=== PATIENT | female | born 1955 | race Caucasian/White ===

== ENCOUNTER → 2019-09-20 | Outpatient (CLI) | payer BC ==
--- NOTE | 2019-09-21 09:52 | BD ---
EXAMINATION TYPE: Axial Bone Density DATE OF EXAM: 09/20/2019 COMPARISON: NONE CLINICAL HISTORY: Postmenopausal Height: 5 fFT 3 IN Weight: 203 FRAX RISK QUESTIONS: Alcohol (3 or more units per day): NO Family History (Parent hip fracture): NO Glucocorticoids (More than 3mos): NO (Ex: prednisone, prednisolone, methylprednisolone, dexamethasone, and hydrocortisone). History of Fracture in Adulthood: NO Secondary Osteoporosis: 1. Type 1 Diabetes: NO 2. Hyperthyroidism: NO 3. Menopause before 45: PART AGE 44 4. Malnutrition: NO 5. Chronic liver disease: NO Rheumatoid Arthritis: NO Current Tobacco Use: NO RISK FACTORS HISTORY OF: Active: YES Postmenopausal woman: PART AGE 44 MEDICATIONS: Thyroid Medications: YES Which medication: LEVOTHYROXINE How Long: SINCE 2008 Osteoporosis Medications: YES Which medication: FOSAMAX How Lon YEARS Additional Medications: ,FOSAMAX,LEVOTHYROXINE, ANXIETY MEDS, LETRAZOLE,CALCIUM, VIT D, VIT E ,LISINO PRIL, HYDROCODONE, CYCLOBENZAPRINE, PRAVASTIN Additional History: BREAST CANCER 2009 STILL TAKING CHEMO PILL EXAM MEASUREMENTS: Bone mineral densitometry was performed using the Med[employer] System. Bone mineral density as measured about the Lumbar spine is: ----- L1-L4(G/cm2): 1.116 T Score Values are as follows: ----- L2: -0.7 ----- L3: -0.4 ----- L4: -0.8 ----- L1-L4: -0.5 BASELINE Bone mineral density about the R hip (g/cm2): 0.836 Bone mineral density about the L hip (g/cm2): 0.882 T Score values are as follows: -----R Neck: -1.5 -----L Neck: -1.1 -----R Total: -1.1 -----L Total: -0.4 BASELINE IMPRESSION: Osteopenia (T Score between -2.5 and -1). There is slightly increased risk of fracture and the patient may be considered for treatment. Re-Screen 2-5 years. NOTE: T-SCORE=SD OF THE YOUNG ADULT MEAN.
== END | disposition home or self-care (01) ==
LOC: RADBDWWP 16:10
PROVIDERS: ATTEND Internal Medicine Hematology & Oncology
DX: C50.311 Malignant neoplasm of lower-inner quadrant of right female breast (principal); M85.80 Other specified disorders of bone density and structure, unspecified site; Z79.890 Hormone replacement therapy; N95.1 Menopausal and female climacteric states; Z91.040 Latex allergy status
CPT/HCPCS: 77080

== ENCOUNTER → 2020-04-03 | Outpatient (CLI) | payer BC ==
--- NOTE | 2020-04-04 09:20 | NM ---
EXAMINATION TYPE: NM thyroid image w uptake DATE OF EXAM: 04/04/2020 COMPARISON: NONE HISTORY: Goiter and hypothyroidism. TECHNIQUE: Thyroid iodine uptake is calculated and images performed after the oral administration of 321 uCi 1-123 Capsule. FINDINGS: There is normal distribution of activity throughout the gland. The 4 hour iodine uptake is calculated at 12% (normal range 8-14%). The 24-hour iodine uptake is calculated at 28% (normal range 15-35%). IMPRESSION: Normal thyroid scan and uptake.
== END | disposition home or self-care (01) ==
LOC: RADNMMAIN 08:18
PROVIDERS: ATTEND Nurse Practitioner Family
DX: E04.9 Nontoxic goiter, unspecified (principal); E03.9 Hypothyroidism, unspecified
CPT/HCPCS: 78014; A9516

== ENCOUNTER → 2020-09-26 | Outpatient (CLI) | payer MEDICAID ==
[2020-09-26 14:37] VITALS: BP 146/89; PULSE 92; RESP 18; TEMP 98.7
--- NOTE | 2020-09-26 15:42 | P.GSHP ---
History of Present Illness H&P Date: 09/26/20 Chief Complaint: bilateral breast cancer Maria Luz is a 64 year old white female seen in consultation for Raquel Marina regarding a history of breast cancer. In November 2009 she was able to palpate a lump in her breast right breast. She had a mammogram that showed new clustered microcalcifications in the UOQ and a small nodule. Ultrasound showed a 1 x 0.8 cm solid nodule at the 3 o'clock position of the right breast corresponding with the palpable lump. No other solid or cystic masses were noted. Attempt at core biopsy was unsuccessful and an open biopsy was performed in the operating room which was positive for invasive ductal carcinoma. This was stage IA. This was approximately a 1 cm tumor was Kianna score 2-3. There was no angiolymphatic invasion, ER positive, SC positive, HER-2 equivocal but positive on fish. 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 The DCIS was ER SC positive. She then underent a bilateral mastectomy and a sentinel node biopsy on February 26, 2010. Three lymph nodes were taken and one was positive for isolated tumor cells. Within the left breast there was no residual or invasive tumor. Right mastectomy tissue revealed no residual in situ or invasive malignancy. She had bilateral reconstruction. The reconstruction was implant reconstruction about one year later in 2010, in [place]. She did not have any chemotherapy or radiation therapy. She was on an antiestrogen medication for 10 years, she was initially on aromidex, and then was changed to letrazole. Between the time of her bilateral mastectomies and starting the hormonal therapy she lost her insurance. At the point where she was being followed again by medical oncology they did not feel that radiation of the axilla secondary to an in situ tumor in the lymph node or any treatment for a HER-2 positive aspect of the tumor was merited. She noted a lump on the left breast/ reconstructed lateral area about one month ago and the left implant is migrating under her axilla. She noted this a few weeks after stopping the letrazole. She states both implants are uncomfortable. [place] [id number]. This revealed a hypoechoic area within the 2 o'clock position of the left breast 9 cm from the nipple. It measured 4 mm in greatest dimension. Follow-up exam in 4-6 months was recommended. This was at the region of the palpable lump. At this time the patient is complaining of constant aching discomfort and bilateral chest wall. The aching radiating discomfort results and emotional anxiety and concerns the cancer may have recurred. She states it is worse with any movement. The left implant rotates under the axilla and she has to push it back. Additionally with any flexing of the pectoralis muscle be implants move and is are uncomfortable. Family History: patient: bilateral breast cancer father: lung cancer maternal great grandmother: breast ancer maternal aunt: breast cancer maternal cousin: breast cancer maternal uncle: leukemia brother: skin cancer ? melanoma Hormonal History: menarche: 14 , breast fed: no, age at first : 22 menopause: hysterectomy at 45, done for fibroid tumors, left one ovary BCP: none hormones: limited time after hysterectomy, 2 years Surgical History: hysterectomy and one ovary bilateral mastectomy, right axillary nodes removed bilateral breast reconstruction January 2011 bladder sling gallbladder lipoma lipoma back Medical History: Abril's disease Arthritis HTN spinal stenosis back disc disease vertigo Spondylolisthesis nicotine: none, second hand smoke her (daughter and her ) alcohol:none drugs: none - Constitutional Constitutional: Reports sweats - EENT Eyes: denies blurred vision, denies pain Ears: deny: decreased hearing, tinnitus Ears, nose, mouth and throat: Denies headache, Denies sore throat - Breasts Breasts: bilateral: as per HPI - Cardiovascular Cardiovascular: Denies chest pain, Denies shortness of breath - Respiratory Respiratory: Reports as per HPI - Gastrointestinal Gastrointestinal: Reports constipation, Denies abdominal pain, Denies diarrhea, Denies nausea, Denies vomiting - Genitourinary (Female) Genitourinary: Denies dysuria, Denies hematuria - Menstruation Menstruation: Reports post hysterectomy - Musculoskeletal Comment: arthritis Musculoskeletal: Reports as per HPI - Integumentary Integumentary: Denies pruritus, Denies rash - Neurological Neurological: Denies numbness, Denies weakness - Psychiatric Psychiatric: Reports anxiety, Reports depression - Endocrine Comment: diabetic Endocrine: Denies fatigue, Denies weight change - Hematologic/Lymphatic Comment: none - Allergic/Immunologic Allergic/Immunologic: Reports as per HPI, Reports seasonal allergies Past Medical History History of Any Multi-Drug Resistant Organisms: None Reported Smoking Status: Never smoker Medications and Allergies Home Medications Medication Instructions Recorded Confirmed Type Calcium Carb/Vitamin D3/Vit K1 1 each PO DAILY 09/26/20 09/26/20 History [Citracal Soft Chew] Cholecalciferol (Vitamin D3) 125 mcg PO DAILY 09/26/20 09/26/20 History [Vitamin D3 (5000 Iu)] Cyclobenzaprine [Flexeril] 5 mg PO HS 09/26/20 09/26/20 History Escitalopram [Lexapro] 20 mg PO DAILY 09/26/20 09/26/20 History HYDROcodone/APAP 5-325MG [[place] 1 tab PO Q4HR PRN 09/26/20 09/26/20 History 5-325] Ibuprofen 800 mg PO Q8H PRN 09/26/20 09/26/20 History Letrozole 2.5 mg PO DAILY 09/26/20 09/26/20 History Levothyroxine Sodium 25 mcg PO DAILY 09/26/20 09/26/20 History Meclizine [Antivert] 25 mg PO DAILY PRN 09/26/20 09/26/20 History [place]-3 Fatty Acids/Fish Oil [Fish 1 each PO DAILY 09/26/20 09/26/20 History Oil 1,000 mg Softgel] Pravastatin Sodium [Pravachol] 20 mg PO DAILY 09/26/20 09/26/20 History Vitamin E 400 unit PO DAILY 09/26/20 09/26/20 History metFORMIN HCL [Glucophage] 500 mg PO BID 09/26/20 09/26/20 History Allergies Allergy/AdvReac Type Severity Reaction Status Date / Time adhesive tape AdvReac Itching Unverified 09/26/20 14:27 anastrozole AdvReac Rash/Hives Unverified 09/26/20 14:27 clindamycin AdvReac Rash/Hives Unverified 09/26/20 14:27 latex AdvReac Itching Unverified 09/26/20 14:27 methylprednisolone AdvReac Nausea Unverified 09/26/20 14:27 Penicillins AdvReac Nausea Unverified 09/26/20 14:27 Surgical - Exam Vital Signs Temp Pulse Resp BP Pulse Ox 98.7 F 92 18 146/89 98 09/26/20 14:33 09/26/20 14:33 09/26/20 14:33 09/26/20 14:33 09/26/20 14:33 BMI 35.2 - General well developed, no distress - Eyes normal ocular movement - ENT normal pinna, normal nares - Neck no masses, trachea midline - Respiratory normal expansion, normal respiratory effort, clear to auscultation - Cardiovascular Rhythm: regular Heart Sounds: normal: S1, S2 - Abdomen Abdomen: soft, non tender, no guarding, no rigid, no rebound - Integumentary normal turgor - Neurologic no disoriented, no combative - Musculoskeletal normal gait - Psychiatric oriented to time, oriented to person, oriented to place, speech is normal, memory intact breast exam: BRA: 42C inspection: bilateral scars and a symmetrical appearance related to breast reconstruction and implants which appeared to be dislodged Palpation: Right breast: Multiple positional exam no discrete dominant mass or nodules of concern implant is in place appears to be fibrosed in place and with patient flexes the pectoral muscle the implant moves with that Right axilla: No adenopathy of concern Left breast: Well-healed scars from prior surgery, implant in place appears to be fibrosed and dislodges with the patient flexes her packed muscle; some mild fullness of the lateral aspect of the incision on the left which may be fibrofatty tissue Left axilla: No adenopathy of concern Results ultrasound reviewed medical records reviewed Assessment and Plan Assessment: Impression: Abril's disease Arthritis HTN spinal stenosis back disc disease vertigo Spondylolisthesis Left breast DCIS/status post mastectomy, right breast stage IA invasive ductal carcinoma, status post mastectomy Bilateral breast reconstruction approximately 10 years ago with probable fibrosis of bilateral implants Nodularity left lateral mastectomy site on implant/not a good candidate for a ne edle biopsy of the site Plan: 1. Patient would like to have implants removed as they are chronically painful, they're becoming more painful with time, they appeared to be fibrosed and in abnormal location, they're causing emotional distress. The make it difficult to do chest wall examination she is concerned about recurrent cancer. She has been a concern the tumor may have recurred as she has some nodularity in the lateral aspect of the left breast and it is hard to evaluate her chest wall. 2. Bilateral implant removal without reconstruction. 3. Patient is given options to see a plastic surgeon and she has declined. 4. medical clearance Risks and benefits of implant removal and is incision revision I discussed with the patient. Of greatest concern is the fact that she has an incision across the breast as well as in the inferior aspect of the breast and so the concern is about the blood supply to the lower flap. She understands this and wishes to proceed with bilateral mastectomies. Risks include but are not limited to bleeding, infection, reaction to the anesthetic. She is not interested in reconstruction in the future and would like to have these removed secondary to the above reasons. CC: Raquel Guevara encounter 60 minutes, time spent in reviewing medical records, physical examination, and counselling.
== END | disposition home or self-care (01) ==
LOC: WWCWWP 13:54
PROVIDERS: ATTEND Surgery
DX: Z53.9 Procedure and treatment not carried out, unspecified reason (principal)

== ENCOUNTER 2020-10-30 16:30 | Emergency (ER) | payer MEDICAID, OTHER ==
[2020-10-30] MEDS ORDERED: DIPH,PERTUS(ACELL)TETVAC-LF 0.5 ML VIAL IM ONE (17:00)
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
[2020-10-30] MEDS ORDERED: ACETAMINOPHEN TAB 500 MG TAB PO STA (17:19)
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
--- NOTE | 2020-10-30 18:11 | XR ---
EXAMINATION TYPE: XR knee complete LT DATE OF EXAM: 10/30/2020 COMPARISON: NONE HISTORY: Knee pain TECHNIQUE: 3 views FINDINGS: There is some spurring on the superior patella. I see no fracture nor dislocation. Joint sp aces are fairly normal. IMPRESSION: No acute abnormality of the left knee.
[2020-10-30] MEDS ORDERED: KETOROLAC 15 MG/ML 1 ML VIAL IM STA (18:38)
[2020-10-30 18:43] VITALS: BP 138/89; PULSE 93; RESP 16; TEMP 97.6
--- NOTE | 2020-10-30 19:23 | XR ---
EXAMINATION TYPE: XR lumbosacral spine min 4V DATE OF EXAM: 10/30/2020 COMPARISON: NONE HISTORY: Pain TECHNIQUE: 5 views FINDINGS: There is a 1 cm anterior subluxation of L4 in relation L5. I see no compression fracture. T here is mild spurring of the endplates. Sacroiliac joints are intact. IMPRESSION: There is an L4-5 spondylolisthesis without evidence of spondylolysis. No fracture seen.
== END 2020-10-30 19:32 | disposition home or self-care (01) ==
LOC: EC 16:30
DX: S16.1XXA Strain of muscle, fascia and tendon at neck level, initial encounter (principal); S39.012A Strain of muscle, fascia and tendon of lower back, initial encounter; S80.02XA Contusion of left knee, initial encounter; R07.89 Other chest pain; V43.52XA Car driver injured in collision with other type car in traffic accident, initial encounter; Y93.I9 Activity, other involving external motion; Y92.410 Unspecified street and highway as the place of occurrence of the external cause; Z90.49 Acquired absence of other specified parts of digestive tract; Z90.710 Acquired absence of both cervix and uterus; Z85.3 Personal history of malignant neoplasm of breast
CPT/HCPCS: 72110; 73562; 71046; 72125; 70450; 90715; 99285; 96372; 90471; J1885

== ENCOUNTER → 2020-11-07 | Outpatient (CLI) | payer MEDICAID, OTHER ==
[2020-11-07 15:18] VITALS: BP 141/89; PULSE 96; RESP 18; TEMP 98.5
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
== END ==
LOC: WWCWWP 15:06
PROVIDERS: ATTEND Surgery
DX: E06.3 Autoimmune thyroiditis (principal); M19.90 Unspecified osteoarthritis, unspecified site; I10 Essential (primary) hypertension; M48.00 Spinal stenosis, site unspecified; M51.9 Unspecified thoracic, thoracolumbar and lumbosacral intervertebral disc disorder; R42 Dizziness and giddiness; M43.10 Spondylolisthesis, site unspecified; Z90.13 Acquired absence of bilateral breasts and nipples; Z79.899 Other long term (current) drug therapy; Z79.1 Long term (current) use of non-steroidal anti-inflammatories (NSAID)

== ENCOUNTER → 2020-11-13 | Outpatient (CLI) | payer MEDICAID ==
--- NOTE | 2020-11-13 12:34 | USB ---
Reason for exam: clinical finding. History: Patient has history of breast cancer at age 55. Family history of breast cancer in grandmother, breast cancer in maternal aunt, and breast cancer in cousin at age 50. Mastectomy of both breasts. Physical Findings: Nurse Summary: right chest 11 o'clock 1cm movable nodule, left breast 9 o'clock 1cm movable nodule (nurse dw). US Breast Limited BILAT Technologist: Rosaura Chandra Right limited breast ultrasound including focal area of concern, retroareolar and axilla demonstrates a 0.5 x 0.6 x 0.3cm vascular lesion at chest. Correlates with palpable. Ultrasound wire localization, remove with implants. Left limited breast ultrasound including focal area of concern, retroareolar and axilla demonstrates a 0.5 x 0.5 x 0.3cm vascular lesion at 3 o'clock, correlates with palpable. Ultrasound wire localization, remove with implants, a 3.0 x 1.1 x 1.2cm lymph node at the axilla and a 1.9 x 1.2 x 0.9cm lymph node at the axilla, some cortical thickening. These results were verbally communicated with the patient and result sheet given to the patient on 11/13/20. ASSESSMENT: Suspicious, BI-RAD 4 RECOMMENDATION: Localization and excision of both breasts. (x 2, ultrasound) PRELIMINARY REPORT CALLED AND FAXED TO DR. CHURCH ON 11/13/20.
== END ==
LOC: RADUSWWP 09:49
PROVIDERS: ATTEND Surgery
DX: N64.59 Other signs and symptoms in breast (principal); Z85.3 Personal history of malignant neoplasm of breast; Z80.3 Family history of malignant neoplasm of breast

== ENCOUNTER 2020-11-19 07:01 | Observation (INO) | payer MEDICAID, OTHER ==
[2020-11-14 13:42] VITALS: BMI 35.0
[~2020-11-19 07:01] MED LIST: HEPARIN SODIUM,PORCINE 5,000 UNIT/ML 1 ML VIAL SQ PRN; HYDROmorphone 0.5 MG/0.5 ML SYRINGE IVP PRN; ONDANSETRON 4 MG/2 ML VIAL IVP PRN; Pre Op ABX Message 1 EACH MISC MISCELLANE ONE
[2020-11-19 07:45] LABS: Glucose,Whole Blood 97 mg/dL (75-99)
[2020-11-19] MEDS: LACTATED RINGERS 1,000 ML IV SCH ×2 (07:53→14:23)
[2020-11-19] MEDS ORDERED: LIDOCAINE 1% INJ 10MG/ML (20 ML MDV) ONE ×2 (07:59→08:48)
[2020-11-19] MEDS ORDERED: MIDAZOLAM 2 MG/2 ML VIAL IVP ONE (08:20)
[2020-11-19] MEDS ORDERED: ONDANSETRON 4 MG/2 ML VIAL ONE (08:48)
[2020-11-19] MEDS ORDERED: SUCCINYLCHOLINE CHLORIDE 100 MG/5 ML SYR IV ONE (08:48)
[2020-11-19] MEDS ORDERED: ROPIVACAINE 5 MG/ML 30 ML VIAL ONE (08:48)
[2020-11-19] MEDS ORDERED: MIDAZOLAM 2 MG/2 ML VIAL ONE (08:48)
[2020-11-19] MEDS ORDERED: fentaNYL (PF) 50 MCG/ML 2 ML AMP ONE (08:48)
[2020-11-19] MEDS ORDERED: ePHEDrine SULFATE/0.9% NACL/PF 50 MG/5 ML SYRINGE IV ONE (08:48)
[2020-11-19] MEDS ORDERED: PROPOFOL 10 MG/ML 20 ML VIAL IV ONE (08:48)
[2020-11-19] MEDS ORDERED: HYDROmorphone (PF) 1 MG/ML ONE (08:48)
[2020-11-19] MEDS ORDERED: SODIUM CHLORIDE 0.9% 100 ML with ceFAZolin 2,000 MG IV ONE ×2 (09:01)
[2020-11-19] MEDS ORDERED: LACTATED RINGERS 1,000 ML IV ONE (10:32)
[2020-11-19] MEDS ORDERED: NALOXONE 0.4 MG/ML 1 ML VIAL IV PRN (12:43)
[2020-11-19] MEDS ORDERED: ONDANSETRON 4 MG/2 ML VIAL IVP PRN (12:43)
--- NOTE | 2020-11-19 12:43 | P.OP ---
Date of Procedure: 11/19/20 Preoperative Diagnosis: Bilateral breast after breast cancer implants/painful/contracture Postoperative Diagnosis: same Procedure(s) Performed: Bilateral breast implants, revision of scars, capsulectomy Anesthesia: MAYRAA Surgeon: Smita Guzmán Estimated Blood Loss (ml): 40 IV fluids (ml): 1,500 Pathology: other (implants, bilateral capsules) Condition: stable Disposition: PACU Indications for Procedure: painful bilateral implants/contractures Operative Findings: bilateral painful implants Description of Procedure: The patient was taken to the operating room and following induction of anesth esia both breasts were prepped and draped in a sterile fashion. The right breast was approached initially. A crescent-shaped incision was made around the nipple areolar complex and carried down to the pectoralis muscle. The area of the subpectoral region was entered and the tissue was dissected free from the capsule. The capsule was entered and the implant was removed. Careful dissection was performed to remove the capsule circumferentially. The capsule appeared to extend into the axillary area was necessary to remove the capsule from this area as well. The posterior capsule was removed off the chest wall and in the supine several areas were was not able to be removed as it was so adherent it was cauterized. Following this the wound was well irrigated. After assured that hemostasis was attained a FLORINDA drain was placed. The deep tissues were closed using 3-0 Vicryl suture. This was followed by closure of the subcutaneous tissue. Vicryl suture. The drain was secured with a 2-0 nylon. A subcuticular suture of 4-0 Monocryl was placed. Additionally there was noted to be a subcutaneous nodule on the chest wall. This was remote from the area of dissection. A separate incision was made over this. The lesion was removed. The deep tissues were closed using 3-0 Vicryl suture. This was followed by closure of the skin with 4-0 Monocryl. the left implant was approached. A crescent shaped incision was made around the nipple areolar complex. This was carried down to the pectoralis muscle. The pectoralis muscle was opened and the area of the capsule was identified. This was dissected free from the surrounding tissues and muscle. The capsule was entered and the implant was removed. The capsule was then removed. The posterior wall of the capsule was removed small portion remained and this was cauterized. Several small vessels were identified which were suture ligated. A #10 FLORINDA drain was placed. This was secured in place using a 2-0 nylon suture. The deep tissues were closed using 3-0 Vicryl suture. The skin was closed using a 4-0 Monocryl. Steri-Strips were applied. The patient tolerated the procedure in stable condition. The palpable abnormality on the left chest wall was removed removing the crescent-shaped area of skin. This was sent separate for pathology to evaluate. The patient tolerated the procedure in stable condition all instrument and sponge counts were correct at the end of the case.
[2020-11-19] MEDS: fentaNYL (PF) 50 MCG/ML 2 ML AMP IV PRN ×2 (13:48→13:58)
[2020-11-19 14:04] LABS: Glucose,Whole Blood 137 mg/dL (75-99)
[2020-11-19] MEDS: HEPARIN SODIUM,PORCINE 5,000 UNIT/ML 1 ML VIAL SQ SCH ×2 (15:45→23:26)
[2020-11-19] MEDS: SODIUM CHLORIDE 0.9% 1,000 ML IV SCH ×2 (15:51→20:15)
[2020-11-19] MEDS: HYDROmorphone 1 MG/ML 1 ML SYRINGE IVP PRN ×3 (16:22→23:30)
[2020-11-20] MEDS: HYDROmorphone 1 MG/ML 1 ML SYRINGE IVP PRN ×2 (03:53→09:28)
[2020-11-20] MEDS: SODIUM CHLORIDE 0.9% 1,000 ML IV SCH (03:58)
[2020-11-20] MEDS ORDERED: ACETAMINOPHEN TAB 500 MG TAB PO PRN (06:55)
[2020-11-20] MEDS: HYDROcodone/APAP 5-325MG 1 EACH TAB PO PRN ×2 (07:26→13:12)
[2020-11-20] MEDS: HEPARIN SODIUM,PORCINE 5,000 UNIT/ML 1 ML VIAL SQ SCH (07:30)
[2020-11-20 07:35] VITALS: BP 121/75; PULSE 76; RESP 18; TEMP 98.2
[2020-11-20 07:56] LABS: Basophils % (A) 0 %; Eosinophils % (A) 0 %; HCT 37.7 % (34.0-46.0); HGB 12.1 gm/dL (11.4-16.0); Lymphocytes # (A) 0.8 k/uL (1.0-4.8); Lymphocytes % (A) 7 %; MCH 29.4 pg (25.0-35.0); MCHC 32.2 g/dL (31.0-37.0); MCV 91.3 fL (80.0-100.0); Monocytes # (A) 0.6 k/uL (0-1.0); Monocytes % (A) 5 %; Neutrophils # (A) 10.8 k/uL (1.3-7.7); Neutrophils % (A) 87 %; Platelet Count 225 k/uL (150-450); RBC 4.13 m/uL (3.80-5.40); RDW 13.8 % (11.5-15.5); WBC 12.4 k/uL (3.8-10.6)
[2020-11-20] MEDS ORDERED: CYCLOBENZAPRINE 5 MG TAB PO PRN (08:54)
[2020-11-20] MEDS ORDERED: PANTOPRAZOLE 40 MG TABLET PO SCH (09:00)
[2020-11-20] MEDS ORDERED: LEVOTHYROXINE 50 MCG TAB PO SCH (09:00)
[2020-11-20] MEDS ORDERED: ESCITALOPRAM 20 MG TAB PO SCH (09:00)
--- NOTE | 2020-11-20 11:13 | P.ANPRN ---
Procedure Note - Anesthesia - Nerve Block Performed Bilateral Erector Spinae Single Time Out Performed: Yes Date of Procedure: 11/20/20 Procedure Start Time: :20 Procedure Stop Time: :30 Location of Patient: PreOp Indication: Acute Post-Operative Pain, Requested by Surgeon Sedation Type: Sedate with meaningful contact maintained Preparation: Sterile Prep Position: Prone Needle Types: Pajunk Needle Gauge: 21 Ultrasound used to visualize needle placement: Yes Ultrasound used to observe medication spread: Yes Blood Aspirated: No Pain Paresthesia on Injection Noted: No Resistance on Injection: Normal Image Stored and Saved: Yes Events: Uneventful and Well Tolerated (ropi .5% 15cc plus xylo 1% 15cc bilerally)
--- NOTE | 2020-11-20 11:37 | P.PN ---
Subjective Progress Note Date: 11/20/20 Principal diagnosis: Postop day #1 bilateral implant removal/bilateral capsulotomies Dominic is a 64-year-old white female status post postop day #1 bilateral implant removal and bilateral Removals. She Is Doing Well at This Time. She Is Tolerating Diet without Difficulty. TRU #1 left side 30 mL serous in nature, TRU #2 right side 20 mL serous in nature Hemoglobin 12.1 Objective - Vital Signs Vital signs: Vital Signs Temp 98.2 F 11/20/20 07:32 Pulse 76 11/20/20 08:00 Resp 18 11/20/20 07:32 BP 121/75 11/20/20 07:32 Pulse Ox 96 11/20/20 07:32 Intake & Output 11/19/20 11/20/20 11/20/20 18:59 06:59 18:59 Intake Total 2240 240 Output Total 140 50 50 Balance 2100 -50 190 Weight 92.4 kg Intake: IV 2000 Oral 240 240 Output: Drainage 50 50 50 tru left 25 30 30 rt tru 25 20 20 Urine 50 Estimated Blood Loss 40 Other: Voiding Method Toilet Toilet # Voids 1 1 - Constitutional General appearance: Present: cooperative - EENT Eyes: Present: EOMI ENT: Present: hearing grossly normal - Neck Neck: Present: normal ROM - Respiratory Respiratory: bilateral: CTA - Cardiovascular Rhythm: regular Heart sounds: normal: S1, S2 - Integumentary Integumentary Comment(s): Incision clean and dry bilateral - Labs CBC & Chem 7: 11/20/20 06:18 11/19/20 07:43 Labs: Abnormal Lab Results - Last 24 Hours (Table) 11/19/20 11/20/20 Range/Units 14:03 06:18 WBC 12.4 H (3.8-10.6) k/uL Neutrophils # 10.8 H (1.3-7.7) k/uL Lymphocytes # 0.8 L (1.0-4.8) k/uL POC Glucose (mg/dL) 137 H (75-99) mg/dL Assessment and Plan Assessment: Impression: 1. Patient postop day #1 removal of bilateral breast implants and capsule resections doing well Plan: 1. DC home to be followed as an outpatient 2. teach patient drain care
[2020-11-20] MEDS ORDERED: PRAVASTATIN SODIUM 20 MG TAB PO SCH (21:00)
== END 2020-11-20 14:06 | disposition home or self-care (01) ==
LOC: OR 07:01 → 6PED 13:43 → OR 23:53
PROVIDERS: ADMIT Surgery; ATTEND Surgery
DX: T85.44XA Capsular contracture of breast implant, initial encounter (principal); N64.4 Mastodynia; T85.42XA Displacement of breast prosthesis and implant, initial encounter; Y83.4 Other reconstructive surgery as the cause of abnormal reaction of the patient, or of later complication, without mention of misadventure at the time of the procedure; N60.22 Fibroadenosis of left breast; N60.21 Fibroadenosis of right breast; R61 Generalized hyperhidrosis; E78.5 Hyperlipidemia, unspecified; I10 Essential (primary) hypertension; E11.9 Type 2 diabetes mellitus without complications; M43.10 Spondylolisthesis, site unspecified; M48.00 Spinal stenosis, site unspecified; M19.90 Unspecified osteoarthritis, unspecified site; E06.3 Autoimmune thyroiditis; F32.9 Major depressive disorder, single episode, unspecified; F41.9 Anxiety disorder, unspecified; Z79.899 Other long term (current) drug therapy; Z79.84 Long term (current) use of oral hypoglycemic drugs; Z79.890 Hormone replacement therapy; Z88.1 Allergy status to other antibiotic agents; Z91.040 Latex allergy status; Z88.2 Allergy status to sulfonamides; Z90.49 Acquired absence of other specified parts of digestive tract; Z90.710 Acquired absence of both cervix and uterus; Z86.018 Personal history of other benign neoplasm; Z85.3 Personal history of malignant neoplasm of breast; Z90.13 Acquired absence of bilateral breasts and nipples; Z80.1 Family history of malignant neoplasm of trachea, bronchus and lung; Z80.3 Family history of malignant neoplasm of breast; Z80.8 Family history of malignant neoplasm of other organs or systems
CPT/HCPCS: 19371; 64999 ×2; 76942; 88305; 84132; 85025; 19120; G0378; J2250; J1644 ×2; J2405; J0690; J2001; J3010; J1170 ×2; J2795; J0330; J2704

== ENCOUNTER → 2020-11-28 | Outpatient (CLI) | payer MEDICAID, OTHER ==
[2020-11-28 11:10] VITALS: BP 136/88; PULSE 99; RESP 18; TEMP 98.6
--- NOTE | 2020-11-28 11:10 | P.PN ---
Progress Note - Text Progress Note Date: 11/28/20 Maria Luz is a 64-year-old white female status post bilateral implant removal and capsulectomy. Additionally a lesion on the right chest wall was removed which was a possible lipoma and lesion in the incision on the left chest wall which did not reveal anything of concern. Postprocedure the patient is doing well she has approximately 35 mL per day and the FLORINDA drain on the right and is 30-25 mL per day and the drain on the left. The drainage is serous and yellow in nature. The patient did have a reaction bilaterally near the region of the Steri-Strips, this may be to related to TinCoBan or Mastisol. The patient has taken Benadryl with some relief of itching of the area. The area does remain erythematous however. This does not look like an infection. Physical exam: Lungs: Clear Heart: Regular rate and rhythm Incisions clean and dry bilaterally with erythema at both incision sites most likely related to the sticky material used to hold the Steri-Strips Plan: Keep FLORINDA drains at this time Appointment with dermatology Follow-up. Approximately 1-1/2 weeks CC: Dr. Ryan
== END ==
LOC: WWCWWP 10:25
PROVIDERS: ATTEND Surgery
DX: Z08 Encounter for follow-up examination after completed treatment for malignant neoplasm (principal); Z98.890 Other specified postprocedural states; Z98.82 Breast implant status

== ENCOUNTER → 2020-12-12 | Outpatient (CLI) | payer MEDICAID ==
[2020-12-12 09:18] VITALS: BP 141/84; PULSE 73; RESP 18; TEMP 98.5
--- NOTE | 2020-12-12 09:35 | P.PN ---
Progress Note - Text Progress Note Date: 12/12/20 Maria Luz is a 64-year-old white female status post bilateral implant removal and capsulectomy. Additionally a lesion on the right chest wall was removed which was a possible lipoma and lesion in the incision on the left chest wall which did not reveal anything of concern. Postprocedure the patient is doing well she has approximately 10 mL per day from the FLORINDA drain on the right and 10 mL per day from the drain on the left. The drainage is serous and yellow in nature. The patient initially had a reaction bilaterally near the region of the Steri- Strips, this may be to related to TinCoBan or Mastisol. The patient has taken Benadryl with some relief of itching of the area. The area did remain erythematous however and she had a Medrol Dosepak from Dr. Quinn Mcgrath. This area has resolved. (The fact that on an ultrasound performed in in the area of 0.6 cm on the right chest was identified which was felt to be palpable and this was believed to be removed at the time of surgery. Additionally in the left breast 0.5 cm lesion at 3:00 correlating with the palpable change was felt to be removed at the time of surgery. In the left axilla a 3 x 1.2 cm lymph node was noted in the second node 1.9 x 0.9 cm with some questionable cortical thickening. This was reviewed with Dr. Corrales from radiology who felt this is most likely benign but close surveillance will be recommended. The patient will have a repeat ultrasound of the left chest wall and right chest wall as well as the left axilla in 3 months from the original ultrasound if anything of concern is noted that an ultrasound-guided biopsy would be recommended. Physical exam: Lungs: Clear Heart: Regular rate and rhythm Incisions clean and dry bilaterally with erythema resolved at both incision sites most likely was related to the sticky material used to hold the Steri- Strips Plan: remove FLORINDA drains at this time continue to follow with Dr. Borrego follow up here in 3 months, after ultrasound bilateral chest garcia and left axilla, if anything of concern is noted on the ultrasounds and core biopsy will be performed. CC: Dr. Quinn Mcgrath, Raquel Isaac
== END ==
LOC: WWCWWP 08:59
PROVIDERS: ATTEND Surgery
DX: Z48.03 Encounter for change or removal of drains (principal)

== ENCOUNTER → 2021-02-17 | Outpatient (CLI) | payer MEDICAID ==
--- NOTE | 2021-02-17 10:33 | USB ---
EXAMINATION TYPE: US breast limited BILAT DATE OF EXAM: 02/17/2021 COMPARISON: 11/13/2020 CLINICAL HISTORY: Z85.3, Personal history of breast cancer. Patient had interval removal of bilateral breast implants and bilateral breast lesions. Findings: The previously seen lesions of the right breast are no longer evident. Interval removal of right mor st implant. The previously noted lesion in the left breast at 3:00 is no longer seen. Incidentally noted are 2 le sions in the left breast at 7:00 measuring up to 0.4 and 0.3 cm, probably benign, follow-up ultrasoun d is recommended in 6 months. In the left axilla, again seen is a lymph node with cortical thickening measuring up to 0.5 cm, unchanged since the prior examination and clinical follow-up is recommended. IMPRESSION: Left breast ultrasound is recommended in 6 months for the 2 ovoid hypoechoic lesion that 7:00. Clinic al follow-up is recommended for asymmetric cortical thickening of a left axillary lymph node which is unchanged. Follow-up ultrasound of this lymph node can also be performed in 6 months. BI-RADS 3, probably benign. Recommendation: Clinical follow-up is recommended for asymmetric cortical thickening of the left axillary lymph node. Follow-up left breast and axillary ultrasound is recommended in 6 months.
== END | disposition home or self-care (01) ==
LOC: RADUSWWP 09:35
PROVIDERS: ATTEND Surgery
DX: Z08 Encounter for follow-up examination after completed treatment for malignant neoplasm (principal); N64.9 Disorder of breast, unspecified; Z85.3 Personal history of malignant neoplasm of breast

== ENCOUNTER → 2021-02-28 | Outpatient (CLI) | payer MEDICAID ==
[2021-02-28 13:16] VITALS: BP 144/93; PULSE 70; RESP 18; TEMP 98.5
--- NOTE | 2021-02-28 13:39 | P.PN ---
Subjective Progress Note Date: 02/28/21 Principal diagnosis: bilateral breast cancer Maria Luz is a 65 year old white female seen in consultation for Raquel Marina regarding a history of breast cancer. In November 2009 she was able to palpate a lump in her breast right breast. She had a mammogram that showed new clustered microcalcifications in the UOQ and a small nodule. Ultrasound showed a 1 x 0.8 cm solid nodule at the 3 o'clock position of the right breast corresponding with the palpable lump. No other solid or cystic masses were noted. Attempt at core biopsy was unsuccessful and an open biopsy was performed in the operating room which was positive for invasive ductal carcinoma. This was stage IA. This was approximately a 1 cm tumor was Norton score 2-3. There was no angiolymphatic invasion, ER positive, MS positive, HER-2 equivocal but positive on fish. 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 The DCIS was ER MS positive. She then underent a bilateral mastectomy and a sentinel node biopsy on February 26, 2010. Three lymph nodes were taken and one was positive for isolated tumor cells. Within the left breast there was no residual or invasive tumor. Right mastectomy tissue revealed no residual in situ or invasive malignancy. She had bilateral reconstruction. The reconstruction was implant reconstruction about one year later in 2010, in [place]. She did not have any chemotherapy or radiation therapy. She was on an antiestrogen medication for 10 years, she was initially on aromidex, and then was changed to letrazole. Between the time of her bilateral mastectomies and starting the hormonal therapy she lost her insurance. At the point where she was being followed again by medical oncology they did not feel that radiation of the axilla secondary to an in situ tumor in the lymph node or any treatment for a HER-2 positive aspect of the tumor was merited. She then noted a lump on the left breast about October 2020 in the reconstructed lateral area and the left implant is migrating under her axilla. She noted this a few weeks after stopping the letrazole. She states both implants are uncomfortable. She had an ultrasound of the left breast performed on . This revealed a hypoechoic area within the 2 o'clock position of the left breast 9 cm from the nipple. It measured 4 mm in greatest dimension. Follow-up exam in 4-6 months was recommended. This was at the region of the palpable lump. The patient was complaining of constant aching discomfort and bilateral chest wall. The aching radiating discomfort resulted in emotional anxiety and concerns the cancer may have recurred. She states it is worse with any movement. The left implanted rotates under the axilla and she has to push it back. Additionally with any flexing of the pectoralis muscle be implants moved and were uncomfortable. She underwent bilateral implant removal and capsulectomy on [id number]. Additionally excision of soft tissue on the right chest wall was performed which revealed prominent adipose tissue could not rule out a lipoma. Left breast nodule was excised which was consistent with scar and benign subcutaneous lymph node. Left chest wall and axillary ultrasound performed on 02-17-21. Incidentally 2 lesions in the left breast as 7 measuring up to 0.4 and 0.3 cm were noted felt to be probably benign. Follow-up ultrasound recommended in 6 months. In the left axilla lymph node was noted with cortical thickening measuring up to 0.5 cm unchanged since prior exam and clinical follow-up recommended. Recommendation was for repeat left chest wall and axillary ultrasound in 6 months. The patient is not complaining of any lumps masses or nodules on either chest wall. The patient was diagnosed with COVID approximately one month ago. She is well at this time with no residual. She did have an IV infusion at her home she is not sure what this was. Family History: patient: bilateral breast cancer father: lung cancer maternal great grandmother: breast ancer maternal aunt: breast cancer maternal cousin: breast cancer maternal uncle: leukemia brother: skin cancer ? melanoma Hormonal History: menarche: 14 , breast fed: no, age at first : 22 menopause: hysterectomy at 45, done for fibroid tumors, left one ovary BCP: none hormones: limited time after hysterectomy, 2 years Surgical History: hysterectomy and one ovary bilateral mastectomy, right axillary nodes removed bilateral breast reconstruction January 2011 bladder sling gallbladder lipoma lipoma back Bilateral breast implant removal Medical History: Abril's disease Arthritis HTN spinal stenosis back disc disease vertigo Spondylolisthesis nicotine: none, second hand smoke her (daughter and her ) alcohol:none drugs: none - Constitutional Constitutional: Reports sweats - EENT Eyes: denies blurred vision, denies pain Ears: deny: decreased hearing, tinnitus Ears, nose, mouth and throat: Denies headache, Denies sore throat - Breasts Breasts: bilateral: as per HPI - Cardiovascular Cardiovascular: Denies chest pain, Denies shortness of breath - Respiratory Respiratory: Reports as per HPI - Gastrointestinal Gastrointestinal: Reports constipation, Denies abdominal pain, Denies diarrhea, Denies nausea, Denies vomiting - Genitourinary (Female) Genitourinary: Denies dysuria, Denies hematuria - Menstruation Menstruation: Reports post hysterectomy - Musculoskeletal Comment: arthritis Musculoskeletal: Reports as per HPI - Integumentary Integumentary: Denies pruritus, Denies rash - Neurological Neurological: Denies numbness, Denies weakness - Psychiatric Psychiatric: Reports anxiety, Reports depression - Endocrine Comment: diabetic Endocrine: Denies fatigue, Denies weight change - Hematologic/Lymphatic Comment: none - Allergic/Immunologic Allergic/Immunologic: Reports as per HPI, Reports seasonal allergies Objective - Vital Signs Vital signs: Vital Signs Temp 98.5 F 02/28/21 13:07 Pulse 70 02/28/21 13:07 Resp 18 02/28/21 13:07 BP 144/93 02/28/21 13:07 Pulse Ox Intake & Output 02/27/21 02/28/21 02/28/21 18:59 06:59 18:59 Weight 87.09 kg - Exam BMI 33 - Constitutional General appearance: Present: cooperative - EENT Eyes: Present: EOMI ENT: Present: hearing grossly normal - Neck Neck: Present: normal ROM - Respiratory Respiratory: bilateral: CTA - Cardiovascular Rhythm: regular Heart sounds: normal: S1, S2 - Gastrointestinal General gastrointestinal: Present: soft - Integumentary Integumentary: Present: normal turgor - Musculoskeletal Musculoskeletal: Present: gait normal - Psychiatric Psychiatric: Present: A&O x's 3, appropriate affect, intact judgment & insight - Additional findings Additional findings: Chest wall examination: Inspection: No evidence of any recurrent lesions on the chest wall Right chest wall: Palpation no evidence of any recurrent lesions or masses Right axilla no adenopathy of concern Left chest wall: No evidence of any recurrent lesions or masses Left axilla: No adenopathy of concern Assessment and Plan Assessment: Impression: Abril's disease Arthritis HTN spinal stenosis back disc disease vertigo Spondylolisthesis Bilateral breast cancer/right breast stage I/ left DCIS Bilateral implant removal/patient is happy with the implants removed Plan: 1. Continue to follow with medical oncology 2. Follow up here in 1 year 3. A prescription is given for mastectomy bra and bilateral implants Cc: Dr. Desmond Melendez / Rqau[facility] Sierra
== END ==
LOC: WWCWWP 12:32
PROVIDERS: ATTEND Surgery
DX: D05.12 Intraductal carcinoma in situ of left breast (principal); D05.11 Intraductal carcinoma in situ of right breast; E06.3 Autoimmune thyroiditis; M51.9 Unspecified thoracic, thoracolumbar and lumbosacral intervertebral disc disorder; M19.90 Unspecified osteoarthritis, unspecified site; I10 Essential (primary) hypertension; M48.00 Spinal stenosis, site unspecified; R42 Dizziness and giddiness; M43.10 Spondylolisthesis, site unspecified; Z91.048 Other nonmedicinal substance allergy status; Z88.1 Allergy status to other antibiotic agents; Z91.040 Latex allergy status; Z88.0 Allergy status to penicillin; Z88.8 Allergy status to other drugs, medicaments and biological substances

== ENCOUNTER 2021-04-21 12:48 | Day surgery (SDC) | payer MEDICAID ==
[2021-04-21 13:29] VITALS: RESP 18; TEMP 98.1
--- NOTE | 2021-04-21 14:11 | US ---
ULTRASOUND GUIDED CORE BIOPSY OF LEFT AXILLA LYMPH NODE: CLINICAL HISTORY: Left axilla cortical thickening lymph node FINDINGS: The procedure was explained to the patient. The risks, complications, benefits and alternatives were discussed and any questions were answered. Informed consent was obtained. Patient was placed supin e on the ultrasound table and prepped and draped in the usual sterile fashion. Utilizing a 18 gauge needle, five passes were made into the requested left axillary lymph node. Patient was stable throughout the procedure. Pathology is pending. All elements of maximal barrier technique were utilized. IMPRESSION: 1. Successful ultrasound guided core biopsy requested left axillary lymph node.
[2021-04-21 14:29] VITALS: BP 119/73; PULSE 78
== END 2021-04-21 14:20 | disposition home or self-care (01) ==
LOC: RADPROMAIN 12:48
PROVIDERS: ATTEND Internal Medicine Hematology & Oncology
DX: C50.912 Malignant neoplasm of unspecified site of left female breast (principal)
CPT/HCPCS: 38505; 76942; 88305; 88341; 88342

== ENCOUNTER 2021-07-10 07:57 | Day surgery (SDC) | payer MEDICAID ==
[2021-07-08 16:05] VITALS: BMI 32.5
[~2021-07-10 07:57] MED LIST changes: -HEPARIN SODIUM,PORCINE 5,000 UNIT/ML 1 ML VIAL SQ PRN; -HYDROmorphone 0.5 MG/0.5 ML SYRINGE IVP PRN; +LACTATED RINGERS 1,000 ML IV SCH; +LIDOCAINE 1% (10MG/ML) FOR IV START INTRADERMA PRN; -ONDANSETRON 4 MG/2 ML VIAL IVP PRN; -Pre Op ABX Message 1 EACH MISC MISCELLANE ONE
[2021-07-10 08:34] VITALS: TEMP 98.4
[2021-07-10 08:45] LABS: Glucose,Whole Blood 96 mg/dL (75-99)
[2021-07-10] MEDS ORDERED: GLUCAGON 1 MG/ML VIAL ONE (09:32)
[2021-07-10] MEDS ORDERED: PROPOFOL 10 MG/ML 20 ML VIAL IV ONE (09:32)
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
--- NOTE | 2021-07-10 09:56 | P.OP ---
Date of Procedure: 07/10/21 Preoperative Diagnosis: Screening colonoscopy Postoperative Diagnosis: Mild diverticulosis Procedure(s) Performed: Colonoscopy Anesthesia: MAC Surgeon: Aristides Fragoso Pathology: none sent Condition: stable Disposition: PACU Description of Procedure: The patient's placed on the endoscopy table in the lateral position. He received IV sedation. Digital rectal exam was performed which revealed no ebonized. The colonoscope was then placed patient anus passed throughout the entire colon. The ileocecal valve was visualized. Cecum, ascending and transverse colon appeared normal. In the descending and sigmoid colon was mild diverticulosis. The scope was back into back the rectum this appeared normal. The scope was then withdrawn
[2021-07-10 10:19] VITALS: BP 117/78; PULSE 78; RESP 18
== END 2021-07-10 10:40 | disposition home or self-care (01) ==
LOC: ORWHC2ENDO 07:57
PROVIDERS: ATTEND Surgery
DX: Z12.11 Encounter for screening for malignant neoplasm of colon (principal); E11.9 Type 2 diabetes mellitus without complications; I10 Essential (primary) hypertension; K21.9 Gastro-esophageal reflux disease without esophagitis; Z79.84 Long term (current) use of oral hypoglycemic drugs; Z80.1 Family history of malignant neoplasm of trachea, bronchus and lung; Z85.3 Personal history of malignant neoplasm of breast; Z86.16 Personal history of COVID-19; Z88.0 Allergy status to penicillin; Z88.1 Allergy status to other antibiotic agents; Z90.49 Acquired absence of other specified parts of digestive tract
CPT/HCPCS: J1610; J2704; G0121

== ENCOUNTER → 2021-10-27 | Outpatient (CLI) | payer MEDICAID ==
--- NOTE | 2021-10-27 10:46 | USB ---
Reason for exam: clinical finding. History: Patient has history of breast cancer at age 55. Family history of breast cancer in grandmother, breast cancer in maternal aunt, and breast cancer in cousin at age 50. Implants in both breasts. Mastectomy of both breasts. Physical Findings: Nurse Summary: bilateral mastectomy sites, no abnormality (nurse ts). US Breast LT Left complete breast ultrasound includes all four quadrants, the retroareolar region and axilla. Finding demonstrates no cystic or solid lesion seen. These results were verbally communicated with the patient and result sheet given to the patient on 10/27/21. ASSESSMENT: Negative, BI-RAD 1 RECOMMENDATION: Clinical management of the left breast. Manage patient on a clinical basis.
== END | disposition home or self-care (01) ==
LOC: RADUSWWP 09:37
PROVIDERS: ATTEND Surgery
DX: Z85.3 Personal history of malignant neoplasm of breast (principal)

== ENCOUNTER → 2021-10-31 | Outpatient (CLI) | payer MEDICAID ==
[2021-10-31 11:59] VITALS: BP 146/91; PULSE 73; RESP 18; TEMP 97.8
--- NOTE | 2021-10-31 12:21 | P.PN ---
Subjective Progress Note Date: 10/31/21 Principal diagnosis: bilateral breast cancer bilateral breast cancer Maria Luz is a 65 year old white female seen in consultation for Raquel Marina regarding a history of breast cancer. In November 2009 she was able to palpate a lump in her breast right breast. She had a mammogram that showed new clustered microcalcifications in the UOQ and a small nodule. Ultrasound showed a 1 x 0.8 cm solid nodule at the 3 o'clock position of the right breast corresponding with the palpable lump. No other solid or cystic masses were noted. Attempt at core biopsy was unsuccessful and an open biopsy was performed in the operating room which was positive for invasive ductal carcinoma. This was stage IA. This was approximately a 1 cm tumor was Kianna score 2-3. There was no angiolymphatic invasion, ER positive, AR positive, HER-2 equivocal but positive on fish. 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 The DCIS was ER AR positive. She then underent a bilateral mastectomy and a sentinel node biopsy on February 26, 2010. Three lymph nodes were taken and one was positive for isolated tumor cells. Within the left breast there was no residual or invasive tumor. Right mastectomy tissue revealed no residual in situ or invasive malignancy. She had bilateral reconstruction. The reconstruction was implant reconstruction about one year later in 2010, in [place]. She did not have any chemotherapy or radiation therapy. She was on an antiestrogen medication for 10 years, she was initially on aromidex, and then was changed to letrazole. Between the time of her bilateral mastectomies and starting the hormonal therapy she lost her insurance. At the point where she was being followed again by medical oncology they did not feel that radiation of the axilla secondary to an in situ tumor in the lymph node or any treatment for a HER-2 positive aspect of the tumor was merited. She then noted a lump on the left breast about October 2020 in the reconstructed lateral area and the left implant is migrating under her axilla. She noted this a few weeks after stopping the letrazole. She states both implants are uncomfortable. She had an ultrasound of the left breast performed on . This revealed a hypoechoic area within the 2 o'clock position of the left breast 9 cm from the nipple. It measured 4 mm in greatest dimension. Follow-up exam in 4-6 months was recommended. This was at the region of the palpable lump. The patient was complaining of constant aching discomfort and bilateral chest wall. The aching radiating discomfort resulted in emotional anxiety and concerns the cancer may have recurred. She states it is worse with any movement. The left implanted rotates under the axilla and she has to push it back. Additionally with any flexing of the pectoralis muscle the implants moved and were uncomfortable. She underwent bilateral implant removal and capsulectomy on . Additionally excision of soft tissue on the right chest wall was performed which revealed prominent adipose tissue could not rule out a lipoma. Left breast nodule was excised which was consistent with scar and benign subcutaneous lymph node. Left chest wall and axillary ultrasound performed on 02-17-21. Incidentally 2 lesions in the left breast at 7 measuring up to 0.4 and 0.3 cm were noted felt to be probably benign. Follow-up ultrasound recommended in 6 months. In the left axilla lymph node was noted with cortical thickening measuring up to 0.5 cm unchanged since prior exam and clinical follow-up recommended. Recommendation w as for repeat left chest wall and axillary ultrasound in 6 months. 10-31-21 The patient had a left chest wall ultrasound preformed on 10-27-21 which was BIRAD 1. The node previously seen was noted to have improved. This was reviewed with Dr. Spaulding. She took letrazole for 10 years but stopped this last year. Did not have any chemotherapy or radiation therapy. The patient is not complaining of any lumps masses or nodules on either chest wall. The patient was diagnosed with COVID approximately one month ago. She is well at this time with no residual. She did have an IV infusion at her home she is not sure what this was. She was seen by DR. Borrego last month and no lesions of concern were noted. Family History: patient: bilateral breast cancer father: lung cancer maternal great grandmother: breast ancer maternal aunt: breast cancer maternal cousin: breast cancer maternal uncle: leukemia brother: skin cancer ? melanoma Hormonal History: menarche: 14 , breast fed: no, age at first : 22 menopause: hysterectomy at 45, done for fibroid tumors, left one ovary BCP: none hormones: limited time after hysterectomy, 2 years Surgical History: hysterectomy and one ovary bilateral mastectomy, right axillary nodes removed bilateral breast reconstruction January 2011 bladder sling gallbladder lipoma lipoma back Bilateral breast implant removal Medical History: Abril's disease Arthritis HTN spinal stenosis back disc disease vertigo Spondylolisthesis nicotine: none, second hand smoke her (daughter and her ) alcohol:none drugs: none - Constitutional Constitutional: Reports sweats - EENT Eyes: denies blurred vision, denies pain Ears: deny: decreased hearing, tinnitus Ears, nose, mouth and throat: Denies headache, Denies sore throat - Breasts Breasts: bilateral: as per HPI - Cardiovascular Cardiovascular: Denies chest pain, Denies shortness of breath - Respiratory Respiratory: Reports as per HPI - Gastrointestinal Gastrointestinal: Reports constipation, Denies abdominal pain, Denies diarrhea, Denies nausea, Denies vomiting - Genitourinary (Female) Genitourinary: Denies dysuria, Denies hematuria - Menstruation Menstruation: Reports post hysterectomy - Musculoskeletal Comment: arthritis Musculoskeletal: Reports as per HPI - Integumentary Integumentary: Denies pruritus, Denies rash - Neurological Neurological: Denies numbness, Denies weakness - Psychiatric Psychiatric: Reports anxiety, Reports depression - Endocrine Comment: diabetic Endocrine: Denies fatigue, Denies weight change - Hematologic/Lymphatic Comment: none - Allergic/Immunologic Allergic/Immunologic: Reports as per HPI, Reports seasonal allergies Objective - Vital Signs Vital signs: Vital Signs Temp 97.8 F 10/31/21 11:57 Pulse 73 10/31/21 11:57 Resp 18 10/31/21 11:57 BP 146/91 10/31/21 11:57 Pulse Ox 99 10/31/21 11:57 Intake & Output 10/30/21 10/31/21 10/31/21 18:59 06:59 18:59 Weight 83.915 kg - Exam BMI 31.8 - Constitutional General appearance: Present: cooperative - EENT Eyes: Present: EOMI ENT: Present: hearing grossly normal - Neck Neck: Present: normal ROM - Respiratory Respiratory: bilateral: CTA - Cardiovascular Rhythm: regular Heart sounds: normal: S1, S2 - Gastrointestinal General gastrointestinal: Present: soft - Integumentary Integumentary: Present: normal turgor - Musculoskeletal Musculoskeletal: Present: gait normal - Psychiatric Psychiatric: Present: A&O x's 3, appropriate affect, intact judgment & insight - Additional findings Additional findings: chest wall: Inspection: No evidence of any infection or recurrence on the right or left chest wall incisions Palpation: Right chest wall: Multiple positional exam no evidence of any recurrent cancer Right axilla: No adenopathy of concern Left chest wall: No evidence of any recurrent cancer Left axilla: No adenopathy of concern Assessment and Plan Assessment: Impression; Abril's disease Arthritis HTN spinal stenosis back disc disease vertigo Spondylolisthesis bilateral breast cancer status post bilateral mastectomy, no evidence of recurrence Plan: Repeat examination in one year CC: Dr. Mcgrath, Raquel Marina
== END | disposition home or self-care (01) ==
LOC: WWCWWP 11:44
PROVIDERS: ATTEND Surgery
DX: Z53.9 Procedure and treatment not carried out, unspecified reason (principal)

== ENCOUNTER → 2023-01-19 | Outpatient (CLI) | payer MEDICARE ==
--- NOTE | 2023-01-20 00:15 | MR ---
EXAMINATION TYPE: MR brain wo/w con DATE OF EXAM: 01/19/2023 COMPARISON: None HISTORY: Memory loss, right hand shaking. History of breast cancer CONTRAST: Performed utilizing 9 mL intravenous Gadavist gadolinium contrast. TECHNIQUE: Multiplanar, multiecho imaging on a 3.0 Janene magnet is performed through the brain. Stud y is performed within 24 hours of arrival to the hospital. The craniovertebral junction is normal. The pituitary is normal. Diffusion-weighted imaging is performed. No abnormal hyperintensity is present to suggest an acute i ntracranial infarct or acute ischemic change. There are some white matter changes within the subcortical right frontal lobe. The largest measures 0 .9 cm. Additional left frontal lobe and centrum semiovale and subcortical white matter changes are p resent. Findings are nonspecific but can be related to chronic white matter ischemic change. Differen tial diagnosis should include multiple sclerosis. No suspicious enhancement is evident. Ventricles and sulci are appropriate for the patient age. No suspicious enhancement is evident. No mass lesion or vasogenic edema is identified. IMPRESSIONS: 1. White matter changes suggestive for chronic white matter ischemic changes. 2. No definite suspicious changes to suggest metastatic disease.
== END | disposition home or self-care (01) ==
LOC: RADMRIMAIN 18:18
PROVIDERS: ATTEND Family Medicine
DX: R90.82 White matter disease, unspecified (principal); R41.3 Other amnesia; R25.1 Tremor, unspecified
CPT/HCPCS: 70553; A9585

== ENCOUNTER → 2023-11-26 | Outpatient (CLI) | payer MEDICARE ==
--- NOTE | 2023-11-26 17:30 | USB ---
Reason for Exam: Clinical finding. Patient History: Hysterectomy at age 41. Breast cancer, age 55. Bilateral Mastectomy. Bilateral Implants. Maternal grandmother had breast cancer. Maternal cousin had breast cancer, age 50. Maternal aunt had breast cancer. Technique: Method: Targeted. Findings: The axilla of the left breast was scanned. There is prominent lymphadenopathy within the left axilla. However, this appearance is stable. One lymph node has a somewhat thickened cortex which appear similar to the prior exam.. Follow-up left axillary ultrasound in 6 months. Overall Assessment: Probably benign, BI-RAD 3 Management: Diagnostic Breast Ultrasound of the left breast in 6 months. A clinical breast exam by your physician is recommended on an annual basis and results should be correlated with mammographic findings. This exam should not preclude additional follow-up of suspicious palpable abnormalities. Results were given to the patient verbally at the time of exam. Electronically signed and approved by: Rio Corrales D.O. Radiologis
== END | disposition home or self-care (01) ==
LOC: RADUSWWP 14:23
PROVIDERS: ATTEND Internal Medicine Hematology & Oncology
DX: C50.311 Malignant neoplasm of lower-inner quadrant of right female breast (principal); Z71.3 Dietary counseling and surveillance; R59.0 Localized enlarged lymph nodes; E78.5 Hyperlipidemia, unspecified

== ENCOUNTER → 2023-12-08 | Outpatient (CLI) | payer MEDICARE ==
[2023-12-08 09:28] VITALS: BP 161/81; PULSE 78; RESP 17; TEMP 98.3
--- NOTE | 2023-12-08 09:42 | P.PN ---
Subjective Progress Note Date: 12/08/23 Principal diagnosis: bilateral breast cancer bilateral breast cancer Maria Luz is a 65 year old white female seen in consultation for Raquel Marina regarding a history of breast cancer. In November 2009 she was able to palpate a lump in her right breast. She had a mammogram that showed new clustered microcalcifications in the UOQ and a small nodule. Ultrasound showed a 1 x 0.8 cm solid nodule at the 3 o'clock position of the right breast corresponding with the palpable lump. No other solid or cystic masses were noted. Attempt at core biopsy was unsuccessful and an open biopsy was performed in the operating room which was positive for invasive ductal carcinoma. This was stage IA. This was approximately a 1 cm tumor was Kianna score 2-3. There was no angiolymphatic invasion, ER positive, IA positive, HER-2 equivocal but positive on fish. 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 The DCIS was ER IA positive. She then underent a bilateral mastectomy and a sentinel node biopsy on February 26, 2010. Three lymph nodes were taken and one was positive for isolated tumor cells. Within the left breast there was no residual or invasive tumor. Right mastectomy tissue revealed no residual in situ or invasive malignancy. She had bilateral reconstruction. The reconstruction was implant reconstruction about one year later in 2010, in [place]. She did not have any chemotherapy or radiation therapy. She was on an antiestrogen medication for 10 years, she was initially on aromidex, and then was changed to letrazole. Between the time of her bilateral mastectomies and starting the hormonal therapy she lost her insurance. At the point where she was being followed again by medical oncology they did not feel that radiation of the axilla secondary to an in situ tumor in the lymph node or any treatment for a HER-2 positive aspect of the tumor was merited. She then noted a lump on the left breast about October 2020 in the reconstructed lateral area and the left implant is migrating under her axilla. She noted this a few weeks after stopping the letrazole. She states both implants were uncomfortable. She had an ultrasound of the left breast performed on . This revealed a hypoechoic area within the 2 o'clock position of the left breast 9 cm from the nipple. It measured 4 mm in greatest dimension. Follow-up exam in 4-6 months was recommended. This was at the region of the palpable lump. The patient was complaining of constant aching discomfort and bilateral chest wall. The aching radiating discomfort resulted in emotional anxiety and concerns the cancer may have recurred. She states it is worse with any movement. The left implanted rotates under the axilla and she has to push it back. Additionally with any flexing of the pectoralis muscle the implants moved and were uncomfortable. She underwent bilateral implant removal and capsulectomy on . Additionally excision of soft tissue on the right chest wall was performed which revealed prominent adipose tissue could not rule out a lipoma. Left breast nodule was excised which was consistent with scar and benign subcutaneous lymph node. Left chest wall and axillary ultrasound performed on 02-17-21. Incidentally 2 lesions in the left chest wall at 7 measuring up to 0.4 and 0.3 cm were noted felt to be probably benign. Follow-up ultrasound recommended in 6 months. In the left axilla lymph node was noted with cortical thickening measuring up to 0.5 cm unchanged since prior exam and clinical follow-up recommended. Recommendation was for repeat left chest wall and axillary ultrasound in 6 months. 10-31-21 The patient had a left chest wall ultrasound preformed on 10-27-21 which was BIRAD 1. The node previously seen was noted to have improved. This was reviewed with Dr. Spaulding. She took letrazole for 10 years but stopped this last year. Did not have any chemotherapy or radiation therapy. The patient is not complaining of any lumps masses or nodules on either chest wall. The patient was diagnosed with COVID approximately one month ago. She is well at this time with no residual. She did have an IV infusion at her home she is not sure what this was. She was seen by DR. Borrego last month and no lesions of concern were noted. 10-29-22 No concerns on today's examination. She has not had any recent radiographic studies performed. 12-08-23 right breast: stage I invasive ductal cancer 2009 treated in [place]; left breast stage 0 2009 treated in [place] The patient is not complaining of any new lumps masses or nodules of concern in either chest wall or under either arm. The patient kept approximately 2 weeks ago and trying to break the fall with her right arm has some discomfort in the right shoulder. This has been followed by primary care x-rays have been done and no fracture has been identified. The patient additionally was noted to have some fullness under her left arm on a recent exam with Dr. Borrego and an ultrasound was performed of this area. Repeat examination in 6 months was recommended. Of any chemotherapy or radiation for either side. The patient did have hormone therapy for 10 years. She stopped this last year. Family History: patient: bilateral breast cancer father: lung cancer maternal great grandmother: breast ancer maternal aunt: breast cancer maternal cousin: breast cancer maternal uncle: leukemia brother: skin cancer ? melanoma Hormonal History: menarche: 14 , breast fed: no, age at first : 22 menopause: hysterectomy at 45, done for fibroid tumors, left one ovary BCP: none hormones: limited time after hysterectomy, 2 years Surgical History: hysterectomy and one ovary bilateral mastectomy, right axillary nodes removed bilateral breast reconstruction January 2011 bladder sling gallbladder lipoma lipoma back Bilateral breast implant removal Medical History: Abril's disease Arthritis HTN spinal stenosis back disc disease vertigo Spondylolisthesis nicotine: none, second hand smoke her (daughter and her ) alcohol:none drugs: none - Constitutional Constitutional: Reports sweats - EENT Eyes: denies blurred vision, denies pain Ears: deny: decreased hearing, tinnitus Ears, nose, mouth and throat: Denies headache, Denies sore throat - Breasts Breasts: bilateral: as per HPI - Cardiovascular Cardiovascular: Denies chest pain, Denies shortness of breath - Respiratory Respiratory: Reports as per HPI - Gastrointestinal Gastrointestinal: Reports constipation, Denies abdominal pain, Denies diarrhea, Denies nausea, Denies vomiting - Genitourinary (Female) Genitourinary: Denies dysuria, Denies hematuria - Menstruation Menstruation: Reports post hysterectomy - Musculoskeletal Comment: arthritis Musculoskeletal: Reports as per HPI - Integumentary Integumentary: Denies pruritus, Denies rash - Neurological Neurological: Denies numbness, Denies weakness - Psychiatric Psychiatric: Reports anxiety, Reports depression - Endocrine Comment: diabetic Endocrine: Denies fatigue, Denies weight change - Hematologic/Lymphatic Comment: none - Allergic/Immunologic Allergic/Immunologic: Reports as per HPI, Reports seasonal allergies Objective - Vital Signs Vital signs: Vital Signs Temp 98.3 F 12/08/23 09:20 Pulse 78 12/08/23 09:20 Resp 17 12/08/23 09:20 BP 161/81 12/08/23 09:20 Pulse Ox 100 12/08/23 09:20 FiO2 Intake & Output 12/07/23 12/08/23 12/08/23 18:59 06:59 18:59 Weight 90.718 kg - Constitutional General appearance: Present: cooperative - EENT Eyes: Present: EOMI ENT: Present: hearing grossly normal - Neck Neck: Present: normal ROM - Respiratory Respiratory: bilateral: CTA - Cardiovascular Heart sounds: normal: S1, S2 - Integumentary Integumentary: Present: normal turgor - Musculoskeletal Musculoskeletal: Present: gait normal - Psychiatric Psychiatric: Present: A&O x's 3, appropriate affect, intact judgment & insight - Additional findings Additional findings: Chest Wall Exam: Right chest wall:'s incision clean and dry no evidence of recurrent cancer Right axilla: No adenopathy of concern Left chest wall incision: Clean and dry Evidence of recurrent cancer Left axilla: No adenopathy of concern, small shoddy adenopathy Assessment and Plan Assessment: Impression: Bilateral breast cancer status post mastectomy and removal of bilateral implants Plan: Prescription given for new post mastectomy bra and implants left axillary ultrasound in 6 months follow up in 6 months Patient to follow up sooner any questions or concerns No evidence of any nodularity of concern in either chest wall shoddy left axillary adenopathy, non worrisome clinically apathy of concern CC: Raquel Isaac
== END ==
LOC: WWCWWP 09:07
PROVIDERS: ATTEND Surgery
DX: Z90.12 Acquired absence of left breast and nipple (principal); Z90.11 Acquired absence of right breast and nipple; Z91.048 Other nonmedicinal substance allergy status; Z91.040 Latex allergy status; Z88.0 Allergy status to penicillin; Z91.018 Allergy to other foods; Z88.1 Allergy status to other antibiotic agents; Z88.8 Allergy status to other drugs, medicaments and biological substances

== ENCOUNTER → 2023-12-23 | Outpatient (CLI) | payer MEDICARE ==
--- NOTE | 2023-12-23 12:48 | P.PN ---
Subjective Progress Note Date: 12/23/23 Principal diagnosis: left axillary adenopathy/biopsy benign I have personally reviewed the ultrasound of the left axilla with the radiologist. Although this appears to be stable since 2021 the cortex is enlarged and has not been sampled. Therefore secondary to the fact that this is an enlarged cortex in a patient with a previous bilateral breast cancer we would recommend left axillary node sampling. The patient is concerned and would like this to be done as well. The patient states that she has concern regarding the lymph node and is unable to sleep at night secondary to her concerns. Plan: Left axillary node core biopsy Follow-up after axillary node sampling CC: Dr. Salima Mcgrath Original Note: Subjective Progress Note Date: 12/08/23 Principal diagnosis: bilateral breast cancer bilateral breast cancer Maria Luz is a 65 year old white female seen in consultation for Raquel Marina regarding a history of breast cancer. In November 2009 she was able to pal persaud a lump in her right breast. She had a mammogram that showed new clustered microcalcifications in the UOQ and a small nodule. Ultrasound showed a 1 x 0.8 cm solid nodule at the 3 o'clock position of the right breast corresponding with the palpable lump. No other solid or cystic masses were noted. Attempt at core biopsy was unsuccessful and an open biopsy was performed in the operating room which was positive for invasive ductal carcinoma. This was stage IA. This was approximately a 1 cm tumor was Kianna score 2-3. There was no angiolymphatic invasion, ER positive, NV positive, HER-2 equivocal but positive on fish. 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 The DCIS was ER NV positive. She then underent a bilateral mastectomy and a sentinel node biopsy on February 26, 2010. Three lymph nodes were taken and one was positive for isolated tumor cells. Within the left breast there was no residual or invasive tumor. Right mastectomy tissue revealed no residual in situ or invasive malignancy. She had bilateral reconstruction. The reconstruction was implant reconstruction about one year later in 2010, in [place]. She did not have any chemotherapy or radiation therapy. She was on an antiestrogen medication for 10 years, she was initially on aromidex, and then was changed to letrazole. Between the time of her bilateral mastectomies and starting the hormonal therapy she lost her insurance. At the point where she was being followed again by medical oncology they did not feel that radiation of the axilla secondary to an in situ tumor in the lymph node or any treatment for a HER-2 positive aspect of the tumor was merited. She then noted a lump on the left breast about October 2020 in the reconstructed lateral area and the left implant is migrating under her axilla. She noted this a few weeks after stopping the letrazole. She states both implants were uncomfortable. She had an ultrasound of the left breast performed on . This revealed a hypoechoic area within the 2 o'clock position of the left breast 9 cm from the nipple. It measured 4 mm in greatest dimension. Follow-up exam in 4-6 months was recommended. This was at the region of the palpable lump. The patient was complaining of constant aching discomfort and bilateral chest wall. The aching radiating discomfort resulted in emotional anxiety and concerns the cancer may have recurred. She states it is worse with any movement. The left implanted rotates under the axilla and she has to push it back. Additionally with any flexing of the pectoralis muscle the implants moved and were uncomfortable. She underwent bilateral implant removal and capsulectomy on . Additionally excision of soft tissue on the right chest wall was performed which revealed prominent adipose tissue could not rule out a lipoma. Left breast nodule was excised which was consistent with scar and benign subcutaneous lymph node. Left chest wall and axillary ultrasound performed on 02-17-21. Incidentally 2 lesions in the left chest wall at 7 measuring up to 0.4 and 0.3 cm were noted felt to be probably benign. Follow-up ultrasound recommended in 6 months. In the left axilla lymph node was noted with cortical thickening measuring up to 0.5 cm unchanged since prior exam and clinical follow-up recommended. Recommendation was for repeat left chest wall and axillary ultrasound in 6 months. 10-31-21 The patient had a left chest wall ultrasound preformed on 10-27-21 which was BIRAD 1. The node previously seen was noted to have improved. This was reviewed with Dr. Spaulding. She took letrazole for 10 years but stopped this last year. Did not have any chemotherapy or radiation therapy. The patient is not complaining of any lumps masses or nodules on either chest wall. The patient was diagnosed with COVID approximately one month ago. She is well at this time with no residual. She did have an IV infusion at her home she is not sure what this was. She was seen by DR. Borrego last month and no lesions of concern were noted. 10-29-22 No concerns on today's examination. She has not had any recent radiographic studies performed. 12-08-23 right breast: stage I invasive ductal cancer 2009 treated in [place]; left br east stage 0 2009 treated in [place] The patient is not complaining of any new lumps masses or nodules of concern in either chest wall or under either arm. The patient kept approximately 2 weeks ago and trying to break the fall with her right arm has some discomfort in the right shoulder. This has been followed by primary care x-rays have been done and no fracture has been identified. The patient additionally was noted to have some fullness under her left arm on a recent exam with Dr. Borrego and an ultrasound was performed of this area. Repeat examination in 6 months was recommended. Of any chemotherapy or radiation for either side. The patient did have hormone therapy for 10 years. She stopped this last year. 12-23-23 The patient had concerns regarding an enlarged left axillary lymph node. She underwent a core biopsy of this on 12-15-2023. This revealed fragment of benign lymph node and adjacent fibroadipose tissue with fibrosis/scar and chronic inflammation. The patient is recommended to undergo breast axillary ultrasound in 6 months with physician exam at that time. Family History: patient: bilateral breast cancer father: lung cancer maternal great grandmother: breast ancer maternal aunt: breast cancer maternal cousin: breast cancer maternal uncle: leukemia brother: skin cancer ? melanoma Hormonal History: menarche: 14 , breast fed: no, age at first : 22 menopause: hysterectomy at 45, done for fibroid tumors, left one ovary BCP: none hormones: limited time after hysterectomy, 2 years Surgical History: hysterectomy and one ovary bilateral mastectomy, right axillary nodes removed bilateral breast reconstruction January 2011 bladder sling gallbladder lipoma lipoma back Bilateral breast implant removal Medical History: Abril's disease Arthritis HTN spinal stenosis back disc disease vertigo Spondylolisthesis nicotine: none, second hand smoke her (daughter and her ) alcohol:none drugs: none - Constitutional Constitutional: Reports sweats - EENT Eyes: denies blurred vision, denies pain Ears: deny: decreased hearing, tinnitus Ears, nose, mouth and throat: Denies headache, Denies sore throat - Breasts Breasts: bilateral: as per HPI - Cardiovascular Cardiovascular: Denies chest pain, Denies shortness of breath - Respiratory Respiratory: Reports as per HPI - Gastrointestinal Gastrointestinal: Reports constipation, Denies abdominal pain, Denies diarrhea, Denies nausea, Denies vomiting - Genitourinary (Female) Genitourinary: Denies dysuria, Denies hematuria - Menstruation Menstruation: Reports post hysterectomy - Musculoskeletal Comment: arthritis Musculoskeletal: Reports as per HPI - Integumentary Integumentary: Denies pruritus, Denies rash - Neurological Neurological: Denies numbness, Denies weakness - Psychiatric Psychiatric: Reports anxiety, Reports depression - Endocrine Comment: diabetic Endocrine: Denies fatigue, Denies weight change - Hematologic/Lymphatic Comment: none - Allergic/Immunologic Allergic/Immunologic: Reports as per HPI, Reports seasonal allergies Objective - Constitutional General appearance: Present: cooperative - EENT Eyes: Present: EOMI ENT: Present: hearing grossly normal - Neck Neck: Present: normal ROM - Respiratory Respiratory: bilateral: CTA - Cardiovascular Heart sounds: normal: S1, S2 - Integumentary Integumentary: Present: normal turgor - Musculoskeletal Musculoskeletal: Present: gait normal - Psychiatric Psychiatric: Present: A&O x's 3, appropriate affect, intact judgment & insight - Additional findings Additional findings: Chest Wall Exam: Right chest wall:'s incision clean and dry no evidence of recurrent cancer Right axilla: No adenopathy of concern Left chest wall incision: Clean and dry Evidence of recurrent cancer Left axilla: No adenopathy of concern, small shoddy adenopathy Assessment and Plan Assessment: Impression: Bilateral breast cancer status post mastectomy and removal of bilateral implants Core biopsy of left node performed on 12-15-2023 benign concordant Plan: Prescription given for new post mastectomy bra and implants left axillary ultrasound in 6 months follow up in 6 months Patient to follow up sooner any questions or concerns No evidence of any nodularity of concern in either chest wall shoddy left axillary adenopathy, non worrisome clinically apathy of concern CC: Raquel Isaac Objective - Vital Signs Vital signs: Intake & Output 12/22/23 12/23/23 12/23/23 18:59 06:59 18:59 Weight 90.718 kg
[2023-12-23 13:13] VITALS: BP 137/91; PULSE 80; RESP 16; TEMP 98.1
== END ==
LOC: WWCWWP 12:15
PROVIDERS: ATTEND Surgery
DX: R92.0 Mammographic microcalcification found on diagnostic imaging of breast (principal); R92.8 Other abnormal and inconclusive findings on diagnostic imaging of breast; C50.911 Malignant neoplasm of unspecified site of right female breast; C50.912 Malignant neoplasm of unspecified site of left female breast; R59.0 Localized enlarged lymph nodes; N63.15 Unspecified lump in the right breast, overlapping quadrants; Z90.13 Acquired absence of bilateral breasts and nipples; Z17.0 Estrogen receptor positive status [ER+]; F41.9 Anxiety disorder, unspecified; Z80.3 Family history of malignant neoplasm of breast; Z90.710 Acquired absence of both cervix and uterus; Z91.048 Other nonmedicinal substance allergy status; Z88.1 Allergy status to other antibiotic agents; Z88.0 Allergy status to penicillin; Z88.8 Allergy status to other drugs, medicaments and biological substances; Z86.16 Personal history of COVID-19